=== PATIENT | male | born 1955 | race Caucasian/White ===

== ENCOUNTER 2017-02-04 09:37 | Inpatient (IN) ==
[2017-02-04 11:07] LABS: BASO% 0.6 % (0.0-0.8); EOS% 3.1 % (0.0-10.0); HEMATOCRIT 16.4 % (42.0-52.0); IMM GRAN# 0.03 X1000 (0.0-0.04); IMM GRAN% 0.5 % (0.0-0.5); LYMPH# 1.11 X1000 (1.2-3.4); LYMPH% 17.1 % (20.5-51.1); MCH 30.6 PG (27-31); MCHC 32.3 g/dL (33-37); MCV 94.8 FL (81-99); MONO# 0.67 X1000 (0.11-0.59); MONO% 10.3 % (1.7-9.3); MPV 10.3 FL (7.4-10.4); NEUT% 68.4 % (42.2-75.2); PLT 223 X1000 (130-400); RBC 1.73 XMIL (4.7-6.1)
[2017-02-04 11:08] LABS: HEMOGLOBIN 5.3 g/dL (14.0-18.0)
[2017-02-04 11:13] LABS: MANUAL DIFF NEEDED? NO
[2017-02-04 11:15] LABS: ALBUMIN 3.9 g/dL (3.5-5.0); CALCIUM 8.1 mg/dL (8.8-10.2); POTASSIUM 5.8 mmol/L (3.5-5.1); TOTAL BILIRUBIN 0.26 mg/dL (0.20-1.00); TOTAL PROTEIN 6.7 g/dL (6.3-8.3)
--- NOTE | 2017-02-04 11:22 | PROVIDER DOCUMENTATION ---
This chart was entered by Berkley Robbins Scribe, acting as scribe for Ozzie Griffith MD. HPI-General Adult - General Chief Complaint: Abnormal Lab[s] Stated Complaint: ANEMIA Time Seen by Provider: 02/04/17 10:00 Source: patient Allergies/Adverse Reactions: Patient Allergies Allergy/AdvReac Type Severity Reaction Status Date / Time ANETHESIA MED Allergy Severe UNKOWN Uncoded 10/13/13 13:33 Home Medications: Home Medication List Medication Instructions Recorded Confirmed Last Taken Type Omeprazole [Prilosec] 40 mg PO DAILY 10/13/13 12/28/14 12/27/14 History Telmisartan [Micardis] 80 mg PO DAILY 10/13/13 12/28/14 12/27/14 History Levofloxacin [Levaquin] 500 mg PO Q48H #4 tablet 01/01/15 Unknown Rx Metronidazole [Flagyl] 500 mg PO TID #27 tablet 01/01/15 Unknown Rx Sitagliptin [Januvia] 50 mg PO DAILY #30 tablet 01/01/15 Unknown Rx Sodium Bicarbonate 650 mg PO BID #60 tablet 01/01/15 Unknown Rx - History of Present Illness -Gen Adult Nature of Presenting Problems: Pt is a 61 year old male who came to the ED with a cc of abnormal labs. Pt reports he went to his PCP because for the past two months he has been fatigued and weak. Pt got his labs back and was told to come to the ED. Location of Pain/Injury: reports: none Pain Radiation: reports: no radiation Quality of Pain: reports: none Severity: reports: mild Onset/Duration: reports: other (two months) Timing: reports: still present Context/Activities at Onset: reports: none Associated Symptoms: reports: weakness Similar Symptoms Previously?: Yes Recently seen or treated by another doctor?: Yes - Diabetes Related Context Context: reports: high blood sugar Review of Systems - Adult - REVIEW OF SYSTEMS - ADULT Constitutional: reports: bruce. denies: chills, fever Ears, Nose, Mouth & Throat: denies: ear pain, nose pain Respiratory: denies: cough, shortness of breath Gastrointestinal: denies: diarrhea, nausea, vomiting Integumentary: reports: other (weakness). denies: mole changes, nail changes Past History - Adult - PAST MEDICAL HISTORY-ADULT Review of Records: reports: Nursing Assessment Review Major Childhood Illnesses: reports: denies history Cardiovascular: reports: HTN Respiratory: reports: denies history Gastrointestinal: reports: denies history Obstetrical/Gynecological: reports: denies history Genitourinary: reports: denies history Musculoskeletal: reports: arthritis Neurological: reports: denies history Psychiatric: reports: denies history Endocrine/Immune: reports: Diabetes Other Conditions: reports: denies history - PRIOR SURGERIES/PROCEDURES Surgical/Procedure History: reports: appendectomy, tonsillectomy, other (left nephrectomy) - FAMILY HISTORY Family History: reviewed, not pertinent Physical Exam-General - PHYSICAL EXAM-ADULT Initial Vital Signs Reviewed: Yes - CONSTITUTIONAL General Appearance: appears well, no apparent distress - EYES Eyes: PERRL/EOMI, pale conjunctivae - HEAD, EARS, NOSE, MOUTH & THROAT HENMT: normocephalic/atraumatic, moist mucous membranes - NECK Neck: non-tender, full range of motion - RESPIRATORY Respiratory: chest non-tender, lungs clear, no pleuratic chest pain - CARDIOVASCULAR Cardiovascular: normal peripheral pulses, regular rate, rhythm - GASTROINTESTINAL (ABDOMEN) Abdominal Exam: normal bowel sounds, non tender, soft - MUSCULOSKELETAL Back Exam: normal inspection, no CVA tenderness Extremity: normal range of motion, non-tender - SKIN Integumentary: normal color, normal turgor - NEUROLOGIC Neurologic: grossly normal - PSYCHIATRIC Psych/Mental Status: normal mood/affect, normal thought content, normal thought process, oriented x 3 Progress - PLAN OF CARE/RESULTS Progress/Plan/Lab Results: Vital Signs - 8 hr 02/04/17 09:53 Temperature 98.6 F Pulse Rate 83 Respiratory Rate 18 Blood Pressure 134/73 O2 Sat by Pulse Oximetry 100 Orders Category Date Time Status Saline Loc NOW Care 02/04/17 10:12 Active CBC WITH ELECTRONIC DIFF [HEME] Stat Lab 02/04/17 10:08 Uncollected CMP [COMPREHENSIVE METABOLIC PANEL] [CHEM] Stat Lab 02/04/17 10:08 Uncollected FOLATE Stat Lab 02/04/17 10:11 Uncollected Stool [OCCULT BLOOD SCREENING] [STOOL] Stat Lab 02/04/17 10:10 Uncollected TYPE & SCREEN [BBK] Stat Lab 02/04/17 10:09 Uncollected UA NIMS W/REFLEX CULT [URINALYSIS] Stat Lab 02/04/17 10:09 Uncollected UIBC W TOTAL IRON [CHEM] Stat Lab 02/04/17 10:10 Uncollected VITAMIN B12 Stat Lab 02/04/17 10:11 Uncollected Result Diagrams: 02/04/17 10:28 02/04/17 10:28 - REASSESSMENT Reassessment #1 Status: unchanged (family introduced to hospice and will discuss final dialysis decisions with Dr Antonio) Departure - Departure Date of Disposition Decision: 02/04/17 Time of Disposition Decision: 16:00 DIAGNOSIS: CKD (chronic kidney disease) Qualifiers: Chronic kidney disease stage: stage 5, not on chronic dialysis Qualified Code(s ): N18.5 - Chronic kidney disease, stage 5 CHF (congestive heart failure), NYHA class IV Qualifiers: Congestive heart failure type: systolic Congestive heart failure chronicity: acute on chronic Qualified Code(s): I50.23 - Acute on chronic systolic ( congestive) heart failure Disposition: HOME 01 Certified Medical Emergency: Emergent Condition: Stable - Critical Care Note This patient required my direct & personal management of CC.: No This chart was documented by the indicated scribe, (Berkley Robbins Scribe) and accurately reflects the services I performed and decisions made by me, Ozzie Griffith MD, as attested by the provider's signature.
[2017-02-04] MEDS ORDERED: NS 1,000 ML IV ONE (12:34)
[2017-02-04 12:58] LABS: ALLEN TEST NO; BLOOD TYPE ARTERIAL; DRAW SITE R BRACHIAL; METHB 0.4 % (0.0-1.5); O2(CT) 7.8 mL/dL (15.0-23.0); PO2(98.6) 113 mmHg (60-100); SAMPLE BLOOD; THB 5.5 g/dL (11.5-17.4)
[2017-02-04 12:59] LABS: MODALITY ROOM AIR
[2017-02-04 13:01] LABS: PCO2(98.6) 18 mmHg (35-45); pH(98.6) 7.14 (7.35-7.45)
[2017-02-04 13:10] LABS: URINE CULTURE NEEDED? NO; URINE SOURCE CLEAN CATCH
[2017-02-04 13:15] LABS: BILIRUBIN URINE NEGATIVE (NEGATIVE); BLOOD URINE SMALL (NEGATIVE); COLOR YELLOW; GLUCOSE URINE NEGATIVE (NEGATIVE); LEUKOCYTES URINE NEGATIVE (NEGATIVE); NITRITE URINE NEGATIVE (NEGATIVE); PROTEIN URINE 300 mg/dL (NEGATIVE); SP GRAVITY URINE 1.012; TURBIDITY URINE CLEAR (CLEAR); URINE MICRO REVIEW NEEDED? YES; UROBILINOGEN URINE NORMAL (NORMAL)
--- NOTE | 2017-02-04 13:21 | Diag Imaging Result Doc PS360 ---
CHEST-PORTABLE - 02/04/2017 INDICATION: radha TECHNIQUE: COMPARISON: 10/13/2013 FINDINGS: The lungs are normally expanded and clear. Heart size and mediastinal contours are normal. No pneumothorax or pleural effusion. IMPRESSION: Negative exam. Electronically signed by Ezequiel Tubbs 02/04/2017 1:18 PM
--- NOTE | 2017-02-04 13:43 | HISTORY AND PHYSICAL ---
PRIMARY CARE PHYSICIAN: Amos Cornejo MD CHIEF COMPLAINT: Weakness and abnormal labs. HISTORY OF PRESENT ILLNESS: Mr. Euceda is a 61-year-old male with a past medical history of hypertension, type 2 diabetes mellitus, and nephrectomy 2/2 kidney stones that presented to the emergency department today with complaints of weakness and abnormal labs. The patient states that 2 days ago he had his labs checked by his primary care doctor and received a phone call yesterday that his labs were abnormal and for him to report to the emergency department as soon as possible. The patient also states that over the past 2 months he has developed swelling in his lower extremities bilaterally and his urine output has decreased. The patient states he is also established with Dr. Antonio for his kidney function, yet they have not come to an agreement on placing the patient on hemodialysis. Initial labs show white blood cell count 6.5, red blood cells 1.73, hemoglobin 5.3, hematocrit 16.4. Potassium 5.8, chloride 1.8. Carbon dioxide 8, anion gap 23, BUN 149, and creatinine 15.6. The patient is familiar with his creatinine, the last known creatinine is around 7. The patient denies any nausea or vomiting, but does state that he has diarrhea around 3 times daily , but this is normal for him. The patientdenies any dark-colored stools or blood in the stool. The patient is currently A O times 3, lying in bed, and appears to be in no acute distress. PAST MEDICAL HISTORY: Hypertension and type 2 diabetes mellitus. PAST SURGICAL HISTORY: 1. Appendectomy. 2. Tonsillectomy. 3. Left nephrectomy, 2/2 nephrolithiasis. PAST MEDICAL HISTORY: 1. Hypertension. 2. Type 2 diabetes mellitus. 3. Arthritis. 4. Medical Noncompliance SOCIAL HISTORY: The patient is a nice the use of tobacco, alcohol, or illicit drugs. FAMILY HISTORY: Mother . History of colon cancer, hypertension, and type 2 diabetes mellitus. Father is still alive with a history of hypotension. ALLERGIES: None. HOME MEDICATIONS: Still being reviewed and collaborated at this time. REVIEW OF SYSTEMS: See HPI. PHYSICAL EXAMINATION: VITAL SIGNS: Temperature 98.6 degrees, pulse rate 83, respirations 18, blood pressure 134/73, MAP 88, SpO2 100 on room air. GENERAL: Mr. Euceda is an obese white male, who appears to be slightly pale and in no acute distress. SKIN: Warm, dry, and pale. HEENT: Conjunctiva are pink and moist. Pupils equal, round, and reactive to light. NECK: Supple with no jugular venous distention. HEART: Regular rate and rhythm. No murmurs, gallops. S1-S2 heard. LUNGS: Breath sounds equal bilaterally. Clear. No crackles or wheezes. ABDOMEN: Obese and soft. Bowel sounds are present and normoactive. No palpable organomegaly, masses, or bruits. EXTREMITIES: 2+ pitting edema in lower extremities bilaterally. There is 2+ edema in hands bilaterally. No clubbing or cyanosis. NEUROLOGICAL: Nonfocal. The patient A O times 3 and in no acute distress. LAB VALUES: White blood cell count 6.5, red blood cell 1.73, hemoglobin 5.3, hematocrit 16.4, MCV 94.8, MCH 30.6. Sodium 139, potassium 5.8, chloride 108, bicarb 8. Anion gap 23, BUN 149, creatinine 15.6, GFR , calcium 8.1. Iron 111, TIBC 203. Vitamin B12 1311. Folate 20. Albumin 3.9. AST 22, ALT 19. IMAGING: Renal ultrasound in progress, no imaging results at this time. CT abdomen and pelvis from 12/28/2016 shows a absent left kidney and ascending colon and sigmoid diverticulitis, with no renal stones, no hydronephrosis ASSESSMENT AND PLAN: 1. Acute on chronic kidney failure: Likely secondary to medical nompliance and general worsening of CKD. We will order urine studies to calculate, renal US The patient is already established with Dr. Antonio, who will be consulted regarding the worsening of his kidney disease. Will hydrate with IV fluids, monitor strict I/Os and daily labs. Pt is likely to need HD. 2. Anemia: Likely chronic, but wouldn't rule out blood loss, however, patient denies and melena or hematochezia. We will order iron studies and TSH. We will type and cross the patient and transfuse 2 units PRBC now and follow H&H closely. Hemocult negative, but may need GI evaluation. 3. Diabetes mellitus: We will check a HA1c. We will continue to monitor and treat accordingly with a sliding scale, low-dose. We will ensure the patient has had adequate diabetic education. 4. Hyperkalemia: 2/2 renal failure and acidosis. Will check and ECG and give him a dose of veltassa. Monitor tele closely. 5. Hypertension. We will continue to monitor and treat accordingly. 6. Dehydration. We will continue IV fluids at 85 an hour and continue to monitor. 7. DVT PPx: Heparin subq given renal failure. Further treatment pending hospital course and laboratory data. Dictated by JOSE Burgess for Tobias Crain MD cc: JOSE Burgess MD Reginald D. Gladish, MD David Francis, MD I have seen and examined patient and I agree with the above plan. Worsening progression of CKD, now ESRD, will be needing [facility]
[2017-02-04 13:47] LABS: PROTEIN CREAT RATIO 3.1; UR CREAT RANDOM 79.2 mg/dL (14-26); UR PROT RANDOM 237.3 mg/dL
--- NOTE | 2017-02-04 13:50 | Diag Imaging Result Doc PS360 ---
US RENAL 1 (LIMITED)-RIGHT - 02/04/2017 INDICATION: radha on ckd TECHNIQUE: Right renal ultrasound. Left kidney has been removed. The bladder was also examined. COMPARISON: CT and ultrasound from 2014 FINDINGS: The left kidney has been surgically removed. The right kidney is very atrophic. No hydronephrosis. Right kidney measures 8.3 x 5 x 5.7 cm. Cortex measures 1 cm. The urinary bladder is grossly normal. Background renal echotexture is hyperechoic. IMPRESSION: Solitary right kidney. Chronic medical renal disease. Diffuse renal atrophy. Electronically signed by Ezequiel Tubbs 02/04/2017 1:48 PM
[2017-02-04 13:54] LABS: UR EPITHELIAL CELLS <10 /HPF (<10); URINE BACTERIA NEGATIVE /HPF; URINE RBC <10 /HPF (<10); URINE WBC <10 /HPF (<10)
[2017-02-04 15:07] LABS: ACETONE SERUM NEGATIVE (NEGATIVE)
[2017-02-04 15:16] LABS: ACETAMINOPHEN < 1.2 ug/mL (10-30)
[2017-02-04] MEDS ORDERED: KAYEXALATE PO ONE (15:20)
[2017-02-04 15:40] LABS: CK INDEX 4.8 (0.0-2.5); CK-MB 18.03 ng/mL (0.0-5.0)
[2017-02-04] MEDS ORDERED: NS 500 ML IV ONE (15:44)
[2017-02-04 16:09] LABS: INR 1.11; PROTIME 11.7 Seconds (9.2-11.7)
[2017-02-04] MEDS: SODIUM BICARBONATE PO SCH (16:20)
[2017-02-04] MEDS: HUMALOG SUBQ SCH ×2 (17:46→23:24)
[2017-02-04] MEDS ORDERED: KEFZOL 1 GM/D5W 1 GM/50 ML IVPB IV ONE (17:58)
[2017-02-04] MEDS ORDERED: LASIX IV SCH (18:00)
--- NOTE | 2017-02-04 18:18 | CONSULTATION ---
DATE OF CONSULTATION: 02/04/2017 REASON FOR CONSULTATION: End-stage renal disease, needing dialysis access. HISTORY OF PRESENT ILLNESS: This is a 61-year-old male with a longstanding history of hypertension and type 2 diabetes, as well as chronic kidney disease. Dr. Antonio has been seeing this patient and he is now needing dialysis access. Recent symptoms include significant fatigue, weakness and leg swelling. He has been found to be very anemic with elevated BUN and creatinine. PAST MEDICAL HISTORY: Hypertension, type 2 diabetes, chronic kidney disease. PAST SURGICAL HISTORY: Appendectomy, tonsillectomy, left nephrectomy. ALLERGIES: None. SOCIAL HISTORY: Negative for tobacco, alcohol, or illicit drug use. FAMILY HISTORY: Positive for colon cancer, hypertension, type 2 diabetes. HOME MEDICATIONS: He was previously known to be on Prilosec and Micardis. REVIEW OF SYSTEMS: Ten systems reviewed and negative except as noted above. PHYSICAL EXAMINATION: Vital Signs: Temperature 98.5 degrees, pulse 82, blood pressure 149/81, O2 saturation 96%. General: He is a well-developed male who is in no acute distress who looks stated age. HEENT: Normocephalic, atraumatic. Extraocular muscles intact. Pupils equal, round, reactive to light. Sclerae anicteric. Mucous membranes are moist. Neck: Supple. No thyromegaly. CARDIOVASCULAR: Regular rate and rhythm. Respiratory: No work of breathing. He has bilateral breath sounds. GI: Soft, nontender, nondistended. No organomegaly or mass. There is a well-healed appendectomy and nephrectomy incision. Extremities: No clubbing or cyanosis. He does have bilateral lower extremity edema. Skin: Warm and dry. No rash. Musculoskeletal: Moves all extremities equally and well. LABORATORY: White blood cell count 6.5, hemoglobin 5.3, hematocrit 16, platelet count 223,000. INR 1.1. Sodium 139, potassium 5.8, chloride 108, CO2 8, BUN 149, creatinine 15.6, glucose 79. ASSESSMENT/PLAN: This is a 59-year-old male with acute on chronic kidney disease, now likely end- stage. He is requiring hemodialysis I have spoken with Dr. Antonio. He wants me to place a tunneled dialysis catheter for hemodialysis as well as a laparoscopic peritoneal dialysis catheter for long-term use. I discussed the risks and benefits with the patient, including bleeding, infection, catheter malfunction, DVT, pneumothorax, possible injury to intra-abdominal organs, incisional hernia, and other imponderables. He understands and agrees to proceed. cc: Jeremy Smart MD
--- NOTE | 2017-02-04 20:37 | CONSULTATION ---
DATE OF CONSULTATION: 02/04/2017 REASON FOR ADMISSION: Weakness with abnormal labs. REASON FOR CONSULTATION: Acute kidney injury on chronic kidney disease, associated with severe weakness and anemia. CONSULTING PHYSICIAN: Dr. Tobias Crain. HISTORY OF PRESENT ILLNESS: Mr. Euceda is a 61-year-old white male who is known to our outpatient services. He has been followed in the past and was noted to have CKD stage 5 in December 2015. At that office visit, he was set up for a peritoneal dialysis catheter placement. Our PD nurses had called him at which time he knee indicated he was not ready for this. Subsequently patient did not keep his followup appointment and has not been seen in our service for almost a year. Patient had seen his primary care physician, Dr. Amos Cornjeo on Wednesday and was found to have a creatinine of 16. Patient was called back by Dr. Cornejo, requested to go to [facility] Emergency Department. Upon arrival, his labs were elevated. He was found to have a BUN of 149 with a creatinine of 15.6. His potassium was 5.8. Patient was found to have a hemoglobin of 5.3, and was severely acidotic with a CO2 of 8. His ABGs indicated severe metabolic acidosis and respiratory acidosis. Patient complains of weakness. He states that he has had morning nausea. For the past 3-4 months he has had increased weakness with increased lower extremity swelling. He does deny chest pain. He states that he has had severe trembling of his upper and lower extremities for approximately 1 month. He denies any fever or chills. No recent falls. We have evaluated the patient in the emergency room and requested the patient state his intensions in regards with receiving hemodialysis at this time and patient states consent. He is currently going to be admitted for further evaluation to the floor. PREVIOUS MEDICAL HISTORY: CKD stage 5 with the last known creatinine at our office of 7.1. He has hypertension, diabetes mellitus type 2, acidosis and has been on sodium bicarbonate. Nephrolithiasis. He has a solitary kidney secondary to removal. Anemia of chronic disease. Secondary hyperparathyroidism. He has a history of arthritis and noted medical noncompliance. PAST SURGICAL HISTORY: Appendectomy, tonsillectomy, left nephrectomy secondary to nephrolithiasis. SOCIAL HISTORY: The patient states that he lives alone. He denies tobacco, alcohol or illicit drug use. His father is the 1 who has driven him to the emergency room department. FAMILY HISTORY: Mother is . History of colon cancer, hypertension and type 2 diabetes. Father is alive with a history of hypertension. CURRENT ALLERGIES: No known drug allergies. HOME MEDICATIONS: Last listed are Prilosec, Januvia, ergocalciferol, vitamin B complex, sodium bicarbonate, guaifenesin, Micardis, and a probiotic. REVIEW OF SYSTEMS: Times 10 with pertinent positives listed above in the HPI. PHYSICAL EXAMINATION: Vital signs: Patient's most recent vital signs, temperature 98.6 degrees, blood pressure 134/73, heart rate 83, respirations 18. He is currently on room air. Last recorded saturation 100%. Input and output: He has had 0 in, he has an IV that is currently being established. He has had 0-60 mL out per void. General: This is a 61- year-old white male. He appears chronically ill. He is in mild distress secondary to lower back pain. Skin: Warm and dry, very pale. HEENT: Normocephalic, atraumatic. Conjunctivae is pale. He has ANA. Mucous membranes are dry. Neck: Supple. Trachea midline. No JVD. Cardiovascular: He is regular rate and rhythm. He is without murmur or gallop. Lungs: Clear to auscultation anteriorly. Equal excursion. Patient remains on room air. Abdomen: Large, round, soft, nontender. Positive bowel sounds. Genitourinary: Not inspected. Patient has had minimal void over the last week. Extremities: He has 2+ pitting edema to the lower extremities bilateral with 2 + to the hands in the upper extremities. Lower extremities have no clubbing or cyanosis. Integumentary: No rashes or lesions noted. Neurological: Patient has positive asterixis. He has positive lower and upper extremity trembling. LABORATORY AND IMAGING: Sodium 139, potassium 5.8, chloride 108, CO2 8, BUN 149 , creatinine 15.6, glucose 79, anion gap 23, calcium 8.1. White count 6.5, hemoglobin 5.3, hematocrit 16.4 with a platelet count of 223,000. His ProTime is 11.7. INR 1.11 with a PTT of 33. Patient has a ABGs: PH 7.14, CO2 18, PO2 113 with a bicarbonate of 8.6. Lactic acid is 0.50. Patient has a negative salicylates, acetaminophen, and acetone level. Stool for occult blood was negative. Urinalysis is positive for proteinuria and heavy sediment. Renal ultrasound reports left nephrectomy, right kidney measuring 8.3. Chest x-ray was negative. Patient anemia panel, his iron is 111, he is 55% total saturation, ferritin 518, folate 20, and a B12 of 1311. ASSESSMENT AND PLAN: 1. Acute on chronic kidney disease stage 5: Patient has had medical noncompliance for the past year, has not been seen in our office. We have talked to the patient in regards with starting hemodialysis and possibly transitioning over to peritoneal dialysis in the near future. Patient states agreement. I will notify Dr. Antonio in regards with this plan of action. We will also notify surgical for surgeon placement of tunnel catheter to proceed with dialysis. 2. Severe anemia: Patient's hemoglobin is 5.3. He has been typed and crossmatched by the primary care team. We will plan for transfusion of at least 2-3 units of packed red blood cells prior to going to surgery due to his low saturation. Hemoccult stools were negative. 3. Acidosis: Patient is in metabolic, anion gap and respiratory acidosis at this time. This is secondary to #1. We will attempt dialysis today and plan for correction. 4. Electrolytes: Hyperkalemia. Patient has been given Kayexalate p.o. to take , along with some Lasix. 5. Acidosis: The patient continues on sodium bicarbonate 1300 mg t.i.d. 6. Severe weakness: This is related to #1 and #2 above. We have discussed the plan of action with the patient. He is agreeable to be admitted, having a tunnel catheter placement to start hemodialysis with transition to peritoneal dialysis. Dr. Antonio is in agreement. He has stated that he will notify surgeon for placement of tunnel catheter today. I would like to thank you for allowing us to follow with this patient. Dictated by JOSE Valencia for Kodka Antonio MD Seen, data reviewed, discussed with Anil Carrero on 02/05/17. Plan as above. cc: JOSE Valencia MD [facility]
[2017-02-04 23:09] LABS: CK INDEX 5.2 (0.0-2.5); CK-MB 14.97 ng/mL (0.0-5.0)
[2017-02-05] MEDS: LASIX IV SCH (03:08)
[2017-02-05] MEDS ORDERED: NS 2,000 ML MISC PRN (06:52)
[2017-02-05] MEDS ORDERED: HEPARIN IV PRN (06:52)
[2017-02-05] MEDS ORDERED: TIGHT: 0.2 ML/HR MISC PRN (06:52)
[2017-02-05 07:34] LABS: HEMATOCRIT 21.3 % (42.0-52.0); HEMOGLOBIN 6.9 g/dL (14.0-18.0); MCH 29.9 PG (27-31); MCHC 32.4 g/dL (33-37); MCV 92.2 FL (81-99); MPV 9.8 FL (7.4-10.4); RBC 2.31 XMIL (4.7-6.1)
[2017-02-05 07:54] LABS: HEMOGLOBIN A1C 5.5 % (4.8-6.0)
[2017-02-05 08:17] LABS: ALBUMIN 3.3 g/dL (3.5-5.0); CALCIUM 7.9 mg/dL (8.8-10.2); POTASSIUM 5.4 mmol/L (3.5-5.1)
[2017-02-05 08:18] LABS: FREE T4 0.68 ng/dL (0.93-1.70)
[2017-02-05 08:46] LABS: CK INDEX 4.9 (0.0-2.5); CK-MB 11.41 ng/mL (0.0-5.0)
--- NOTE | 2017-02-05 09:47 | EKG Report ---
Test Performed on : 02/05/2017 08:12:59 AM Test Reason : Surgery evaluation Blood Pressure : / mmHG Vent. Rate : 074 BPM Atrial Rate : 074 BPM P-R Int : 172 ms QRS Dur : 114 ms QT Int : 414 ms P-R-T Axes : 048 -18 072 degrees QTc Int : 459 ms Normal sinus rhythm. Normal ECG No previous ECGs available Confirmed by Enrique NUNES, Serafin Castañeda ([id number]) on 02/05/2017 11:18:09 AM
--- NOTE | 2017-02-05 10:44 | PROGRESS NOTE ---
DATE: 02/05/2017 SUBJECTIVE: He had 2 units of blood last night. He states he thinks he feels some better. Still weak and still some shortness of breath with exertion. No dizziness, no chest pain, etc. OBJECTIVE: Vital Signs: Blood pressure 144/78, heart rate 72, respirations 15, afebrile. Intake 700 mL; output 60 mL. General: On physical examination, chronically-ill man in no acute distress. Less pale. Skin: Warm and dry. Eyes: Conjunctivae are pink. Pupils are equal. Neck: Neck veins are not distended. Heart: Regular with no rubs. Lungs: Have equal breath sounds. No crackles or wheezes. Abdomen: Soft, nontender. Bowel sounds present. Extremities: Have 1+ edema. No clubbing or cyanosis. LABORATORY DATA: Sodium 142, potassium 5.4, chloride 111, bicarbonate 7. BUN 148, creatinine 15.5. Calcium 7.9, phosphorus 9.8. Hemoglobin 6.9. IMPRESSION: 1. End-stage kidney disease: He will have a tunneled catheter and peritoneal dialysis catheters placed today. He will have a 2 hour dialysis treatment using a 250 blood flow and 1 L net negative fluid balance. 2. Electrolytes: Multiple derangements that should be treated with dialysis. 3. Metabolic acidosis: Related to his renal dysfunction. Should improve with treatment. 4. Anemia: Improved with transfusion. He does not have any deficiency states. He will need 2 more units of blood and then we will initiate erythropoietin today as well. cc: Kodak Antonio MD
[2017-02-05] MEDS ORDERED: HEPARIN ONE ×2 (12:23→16:19)
[2017-02-05] MEDS ORDERED: NS 2,000 ML ONE (12:23)
[2017-02-05] MEDS ORDERED: VITAMIN D PO SCH (15:15)
[2017-02-05] MEDS ORDERED: XYLOCAINE-MPF 2% ONE (15:36)
[2017-02-05] MEDS ORDERED: NEO-SYNEPHRINE ONE (15:36)
[2017-02-05] MEDS ORDERED: ROBINUL ONE (15:36)
[2017-02-05] MEDS ORDERED: SODIUM CHLORIDE 0.9% 20 ML ONE (15:36)
[2017-02-05] MEDS: HUMALOG SUBQ SCH ×2 (15:41→15:42)
[2017-02-05] MEDS: SODIUM BICARBONATE PO SCH ×2 (15:42→21:11)
[2017-02-05] MEDS ORDERED: KEFZOL 1 GM/D5W 1 GM/50 ML IVPB ONE (15:45)
--- NOTE | 2017-02-05 15:46 | PROGRESS NOTE ---
DATE: 02/05/2017 SUBJECTIVE: Today, Mr. Euceda refers to be doing a little better. He continues to complain of pains in his leg bones. OBJECTIVE: Vital signs: Blood pressure is 141/86, pulse of 72, respirations 16, and temperature is 98.6 degrees. General: Mr. Euceda is a 61-year-old male. He is in bed and did not seem to be in any major distress. HEENT: Mucosa is slightly pale, anicteric and acyanotic. Neck: Supple. Chest: Good air entry bilateral. I did not appreciate any crepitations. Cardiovascular: Regular rate and rhythm. Abdomen: Soft. Extremities: About 1+ pedal edema. Central Nervous System: Patient is awake and alert. There is no focal neurological deficit. LABORATORY DATA: WBC is 6.1. Hemoglobin is 6.9. This is after 2 PRBC transfusions. Chemistry: Sodium is 142, potassium is 5.4, chloride is 101, bicarbonate is 7, creatinine is 15.5, calcium is 7.9, phosphorus is 9.8. Vitamin D is 10.9. Patient's TSH is 5.74 and free T4 is 0.68. PTH is 622. ASSESSMENT: 1. Generalized weakness, which I think is due to the underlying metabolic disturbances associated with worsening of her end-stage renal disease as well as the anemia. 2. Normocytic anemia associated with renal disease. Patient is status post 2 PRBC transfusion. The understanding is that they are going to start him on Epogen. 3. Diabetes mellitus. A1c is 5.5. 4. Hypothyroidism. We will start the patient on levothyroxine. 5. Secondary hyperparathyroidism due to underlying vitamin D deficiency and renal disease. We will start the patient on Sensipar. 6. Vitamin D deficiency. Patient will be on ergocalciferol and calcitriol. 7. Hyperphosphatemia secondary to underlying renal disease. We will start the patient on PhosLo. 8. High anion gap metabolic acidosis secondary to the underlying renal failure. 9. Bone pain, likely secondary to bone mineral disease associated with the end-stage renal disease. I understand Mr. Euceda is going to get a tunneled catheter to start hemodialysis, hopefully today. Will also start him on other medications for the thyroid and parathyroid disorders that have been found in his lab work. cc: Tobias Crain MD
[2017-02-05] MEDS ORDERED: FENTANYL ONE ×2 (15:48→15:49)
[2017-02-05] MEDS ORDERED: VERSED ONE (15:48)
--- NOTE | 2017-02-05 15:48 | PROGRESS NOTE ---
DATE: 02/05/2017 Mr. Euceda has end-stage renal disease and needs hemodialysis. We were asked to place a PermCath and a peritoneal dialysis catheter, but, after discussion with our anesthesiologist, he wanted his electrolytes to be better under control prior to general anesthesia and so we will place his PermCath, allow him to dialyze, and later place a peritoneal dialysis catheter. Dr. Jeremy Smart asked that I take over this procedure. I have discussed the PermCath placement with the patient at the bedside in detail. We discussed the need of this catheter for hemodialysis. We discussed risks of placing the catheter, including bleeding, infection, and pneumothorax. He wants to proceed. cc: Cherry Mendiola MD
[2017-02-05] MEDS ORDERED: DIPRIVAN 1% ONE (15:49)
[2017-02-05] MEDS ORDERED: XYLOCAINE 1%/EPI 1:100,000 ONE (16:18)
[2017-02-05] MEDS ORDERED: NS 250 ML ONE (16:19)
[2017-02-05] MEDS ORDERED: MARCAINE 0.25% PF ONE (16:19)
[2017-02-05] MEDS: HEPARIN ONE (16:45)
--- NOTE | 2017-02-05 18:57 | OPERATIVE NOTE ---
PROCEDURE DATE: 02/05/2017 PREOPERATIVE DIAGNOSIS: End-stage renal disease, requiring chronic hemodialysis. POSTOPERATIVE DIAGNOSIS: End-stage renal disease, requiring chronic hemodialysis. PRINCIPAL PROCEDURE: Right internal jugular PermCath using ultrasound and fluoroscopy. SURGEON: Cherry Mendiola MD. ANESTHESIA: Local with IV sedation. ESTIMATED BLOOD LOSS: 25 mL. DRAINS: None. INDICATIONS: Mr. Massimo Euceda is a 61-year-old white male, patient Dr. Antonio, who has reached end-stage renal disease and will require dialysis. We were asked to place access. DESCRIPTION OF PROCEDURE: The patient was brought to the operating room, placed supine, received IV sedation. His right neck, shoulder, and anterior chest were prepped and draped within the sterile field. We used an Ioban on the skin. We used local anesthetic at our incision sites. We began the procedure by using ultrasound to access the right internal jugular vein. We used an 18- gauge needle to access the right internal jugular vein and through this needle we placed a guidewire. We checked the position of the guidewire with fluoroscopy. We made a counterincision on the anterior right chest and we tunneled a 19 cm in total length precurved PermCath from the chest incision to the neck incision. We placed dilators over the guidewire and then a dilator and sheath over the guidewire into the superior vena cava. We removed the dilator and guidewire and through this sheath, we placed the distal end of our precurved catheter and directed it into the superior vena cava with the help of fluoroscopy. We peeled away the sheath. The catheter was in good position. It was functioning well and we flushed it with heparin saline. We secured it to its exit site anterior chest with two 2-0 nylon stitches and we closed the small incision base of right neck with a 4-0 Monocryl stitch. Steri-Strips were applied followed by an op-site on the chest. He tolerated the procedure well with plans for him to go the recovery room and then return to the floor. cc: Cherry Mendiola MD
[2017-02-05] MEDS: PHOSLO PO SCH (21:11)
[2017-02-05] MEDS: SENSIPAR PO SCH (21:11)
[2017-02-05] MEDS ORDERED: TYLENOL PO PRN (22:59)
[2017-02-05] MEDS ORDERED: NORCO-5 PO PRN (22:59)
[2017-02-06] MEDS: SYNTHROID PO SCH ×2 (02:44→06:21)
[2017-02-06] MEDS: LASIX IV SCH (02:44)
[2017-02-06] MEDS: HUMALOG SUBQ SCH ×4 (02:44→14:21)
[2017-02-06] MEDS: HEPARIN ONE (02:44)
[2017-02-06] MEDS: SODIUM BICARBONATE PO SCH (02:45)
[2017-02-06] MEDS: EPOGEN SUBQ SCH ×2 (02:45→14:23)
[2017-02-06 06:34] LABS: HEMOGLOBIN 8.8 g/dL (14.0-18.0); MCH 30.4 PG (27-31); MCHC 33.8 g/dL (33-37); MPV 9.6 FL (7.4-10.4); RBC 2.89 XMIL (4.7-6.1)
[2017-02-06 07:14] LABS: ALBUMIN 3.4 g/dL (3.5-5.0); CALCIUM 7.8 mg/dL (8.8-10.2); POTASSIUM 3.7 mmol/L (3.5-5.1)
[2017-02-06 07:49] VITALS: BP 137/76
[2017-02-06] MEDS ORDERED: ROCALTROL PO SCH (09:00)
[2017-02-06] MEDS ORDERED: HEPARIN ONE (09:20)
[2017-02-06] MEDS ORDERED: NS 2,000 ML ONE (09:20)
[2017-02-06] MEDS ORDERED: NS 2,000 ML MISC PRN (09:54)
[2017-02-06] MEDS ORDERED: EPOGEN SUBQ ONE (11:00)
--- NOTE | 2017-02-06 13:40 | PROGRESS NOTE ---
DATE: 02/06/2017 SUBJECTIVE: He is feeling well. He had no complications following dialysis last evening. OBJECTIVE: Vital Signs: Blood pressure 137/76, heart rate 80, respiration 18, afebrile. Intake 900 mL, output 375 mL. PHYSICAL EXAMINATION: No acute distress.Skin: Warm and dry. HEENT: Conjunctivae are pink. Neck: Neck veins are not distended. Heart: Regular. No rubs. Lungs: Have equal breath sounds. No crackles. Abdomen: Soft and nontender. Bowel sounds are present. Extremities: Have trace edema. No clubbing or cyanosis. LABORATORY DATA: Sodium 141, potassium 3.7, chloride 107, bicarbonate 14. BUN 98, creatinine 11.2. Calcium 7.8, phosphorus 7.3. IMPRESSION: 1. End-stage kidney disease. He had a tunneled catheter placed yesterday and had his 1st hemodialysis treatment without complications. He will have a baires treatment today and then it is okay for him to be discharged home. He will be contacted on Wednesday by the outpatient dialysis unit to arrange his treatment. Ultimately he will change to peritoneal dialysis but we were not able to place his PD catheter because Anesthesia was reluctant to put him under general endotracheal anesthesia on yesterday because of his severe electrolyte abnormalities. We will arrange for PD catheter placement next week if possible. 2. Acid base: His acidosis is improved and does not need to go home on oral bicarbonate. 3. Anemia. Iron stores were acceptable. Will dose with erythropoietin prior to discharge and continue that as an outpatient. He had a total 4 units packed red blood cells. 4. Metabolic bone disease. His PTH is in target on cinacalcet. His phosphorus is above target so I would like to discharge him on Tums 2 with each meal. cc: Kodak Antonio MD
[2017-02-06] MEDS: PHOSLO PO SCH ×2 (14:18→14:21)
[2017-02-06] MEDS: SENSIPAR PO SCH (14:21)
--- NOTE | 2017-02-07 04:31 | DISCHARGE SUMMARY ---
ADMISSION DATE: 02/04/2017 DISCHARGE DATE: 02/06/2017 DISPOSITION: Home. FOLLOWUP: 1. Dr. Antonio. 2. Dr. Cornejo, PCP. INVASIVE PROCEDURES DONE DURING THIS ADMISSION: Right internal jugular PermCath using ultrasound guidance was done by Dr. Mendiola. IMAGING STUDIES OF SIGNIFICANCE: Renal ultrasound was done which showed a solitary right kidney, chronic with diffuse renal atrophy. A chest x-ray was done which showed normal heart size, no acute pulmonary disease. ADMISSION DIAGNOSES: 1. Acute on chronic kidney failure. 2. Anemia. 3. Diabetes mellitus. 4. Hyperkalemia. 5. Hypertension. DIAGNOSES AT THE TIME OF DISCHARGE: 1. Generalized weakness, likely due to underlying renal failure. 2. Normocytic anemia associated with renal disease. 3. End-stage renal disease, needing hemodialysis. 4. Diabetes mellitus. 5. Hypothyroidism, newly diagnosed. 6. Secondary hyperparathyroidism. 7. Vitamin D deficiency. 8. Hyperphosphatemia secondary to underlying renal disease. 9. Bone pain likely due to underlying bone mineral disease associated with end- stage renal disease. DISCHARGE MEDICATIONS: 1. Micardis 80 mg at bedtime. 2. Omeprazole 40 mg at bedtime. 3. Cuthbert-3 fatty acids. 4. Vitamin B complex. 5. Loratadine. 6. Calcitriol 0.25 mcg daily. 7. Ergocalciferol 50,000 units p.o. q.7 days. 8. Levothyroxine 80 mcg daily. 9. Sensipar 30 mg b.i.d. PRESENTING COMPLAINT: Weakness and abnormal labs. HISTORY OF PRESENTING COMPLAINT: Mr. Euceda is a 61-year-old, male with a history of a nephrectomy secondary to kidney stones a couple years ago. Patient is known to have CKD stage IV to V but has not been followed up accordingly with Dr. Antonio. Presented at this time because of excessive weakness and abnormal lab work that he did with his primary care doctor. The patient was subsequently admitted for further medical care. HOSPITAL COURSE: The patient was initially admitted with severe metabolic acidosis and completely deranged electrolytes and renal function. Nephrology was consulted. Patient was started on some bicarb, fluid, and Lasix but that did not seem to have helped so dialysis was discussed with him. Surgery was consulted for an access. A PermCath was placed as an interim measure for the patient to start getting his renal replacement therapy. Today, I spoke with Dr. Antonio and he of the opinion that after the dialysis, patient can be sent home. He will be called on Wednesday for scheduled dialysis arrangements. Patient was also found to have bone and mineral disease associated with underlying end-stage renal disease and he was started on medications. He came in with severe anemia as well secondary to the underlying renal disease with hemoglobin and hematocrit of 5.3. He was given 4 PRBC transfusion, and hemoglobin and hematocrit are now stable. The patient will be discharged today after the hemodialysis and he will follow up with Dr. Antonio for a scheduled hemodialysis arrangement and also with his PCP. Time spent for discharge is 37 minutes. cc: Tobias Crain MD MTDD
[2017-02-08 12:15] LABS: HEPATITIS PROFILE ACUTE SEE COMMENTS
== END 2017-02-06 15:05 | disposition home or self-care (01) ==
LOC: ED 09:37 → EDIPHOLD 09:38 → 3N 13:50
PROVIDERS: ATTEND Internal Medicine